=== PATIENT | male | born 2000 | race Caucasian/White ===

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

== ENCOUNTER → 2019-01-20 | Outpatient (CLI) | payer OTHER ==
--- NOTE | 2019-01-20 13:42 | MR ---
EXAMINATION TYPE: MR hip RT wo con DATE OF EXAM: 01/20/2019 8:41 AM COMPARISON: NONE HISTORY: Pain in right hip / trochanteric bursitis TECHNIQUE: Multiplanar, multiecho imaging of the right hip is performed without IV contrast. FINDINGS: The hip joint is well-maintained. There is no significant effusion. There is no evidence of avascular necrosis. Right intertrochanteric bursa is normal. Structures within the pelvis appear normal. There is a scant amount of free fluid within the pelvis. IMPRESSION: 1. NORMAL MRI OF THE RIGHT HIP. 2. NO EVIDENCE OF TROCHANTERIC BURSITIS. 3. SCANT AMOUNT OF FREE FLUID WITHIN THE PELVIS.
== END | disposition home or self-care (01) ==
LOC: RADMRIMAIN 07:48
PROVIDERS: ATTEND Orthopaedic Surgery
DX: M25.551 Pain in right hip (principal); M70.61 Trochanteric bursitis, right hip

== ENCOUNTER → 2019-07-23 | Outpatient (CLI) | payer OTHER ==
--- NOTE | 2019-07-23 11:57 | XR ---
EXAMINATION TYPE: XR chest 2V DATE OF EXAM: 07/23/2019 COMPARISON: 07/19/2017 TECHNIQUE: PA and lateral views submitted. HISTORY: Cough FINDINGS: The lungs are clear and there is no pneumothorax, pleural effusion, or focal pneumonia. No overt fa ilure. No pneumothorax. IMPRESSION: 1. No acute process.
== END | disposition home or self-care (01) ==
LOC: RADXRYALE 11:33
PROVIDERS: ATTEND Physician Assistant Medical
DX: R05 Cough (principal)
CPT/HCPCS: 71046

== ENCOUNTER 2021-03-08 01:09 | Emergency (ER) | payer OTHER ==
[2021-03-08 01:22] VITALS: BP 125/78; PULSE 81; RESP 19; TEMP 98.1
[2021-03-08] MEDS ORDERED: Acetaminophen-Codeine 300-30mg TAB PO STA (01:45)
[2021-03-08] MEDS ORDERED: SULFAMETHOX-TMP 800-160MG 1 EACH TAB PO STA (01:45)
[2021-03-08] MEDS ORDERED: LIDOCAINE 1% INJ 10MG/ML (20 ML MDV) SQ ONE (01:46)
--- NOTE | 2021-03-08 02:24 | ED ---
Skin/Abscess/FB HPI - General Chief complaint: Skin/Abscess/Foreign Body Stated complaint: Tailbone Pain Time Seen by Provider: 03/08/21 01:30 Source: patient Mode of arrival: ambulatory - History of Present Illness complaint: abscess/boil Onset/Timin -: days(s) Tetanus Up to Date: yes Location: buttocks Severity: moderate Quality: aching Consistency: constant Improves with: none Worsens with: none - Related Data Home Medications Medication Instructions Recorded Confirmed No Known Home Medications 05/17/14 05/17/14 Allergies Allergy/AdvReac Type Severity Reaction Status Date / Time Penicillins Allergy Intermediate Rash/Hives Verified 03/08/21 01:22 Review of Systems ROS Statement: Those systems with pertinent positive or pertinent negative responses have been documented in the HPI. ROS Other: All systems not noted in ROS Statement are negative. Constitutional: Denies: fever, chills Respiratory: Denies: cough, dyspnea Cardiovascular: Denies: chest pain, palpitations Gastrointestinal: Denies: abdominal pain, nausea, vomiting Musculoskeletal: Denies: back pain Skin: Reports: as per HPI Hematological/Lymphatic: Denies: easy bleeding Past Medical History Past Medical History: No Reported History History of Any Multi-Drug Resistant Organisms: None Reported Past Surgical History: No Surgical Hx Reported Past Psychological History: No Psychological Hx Reported Smoking Status: Never smoker Past Alcohol Use History: None Reported Past Drug Use History: None Reported General Exam General appearance: alert, in no apparent distress Head exam: Present: atraumatic, normocephalic Eye exam: Present: normal appearance. Absent: scleral icterus, conjunctival injection Respiratory exam: Present: normal lung sounds bilaterally. Absent: respiratory distress, wheezes, rales, rhonchi, stridor Cardiovascular Exam: Present: regular rate, normal rhythm, normal heart sounds. Absent: systolic murmur, diastolic murmur, rubs, gallop GI/Abdominal exam: Present: soft. Absent: distended, tenderness, guarding, rebound, rigid, mass Extremities exam: Present: normal inspection, normal capillary refill Neurological exam: Present: alert Skin exam: Present: warm, dry, intact, erythema, other (There is an approximately 5 cm diameter area of warmth, erythema, overlying fluctuant what appears to be abscess/pilonidal cyst) Course Vital Signs 03/08/21 01:17 Temperature 98.1 F Pulse Rate 81 Respiratory 19 Rate Blood Pressure 125/78 O2 Sat by Pulse 98 Oximetry Procedures - Incision & Drainage Consent Obtained: verbal consent Site: buttock Size (cm): 5 Anesthetic Used: lidocaine 1% Amount (mLs): 2 I&D Cleaning Method: Betadine Sterile Field Used?: Yes Scalpel Used: #11 Irrigation Performed?: Yes I&D Drainage Obtained: Pus Packing: Iodoform Patient Tolerated Procedure: well, no complications Disposition Clinical Impression: Pilonidal cyst with abscess Disposition: HOME SELF-CARE Condition: Good Instructions (If sedation given, give patient instructions): Pilonidal Cyst (ED), Abscess Incision and Drainage (DC) Is patient prescribed a controlled substance at d/c from ED?: No Referrals: Sumanth Arreguin DO [Primary Care Provider] - 1-2 days Linsey Russo DO [Doctor of Osteopathic Medicine] - 1-2 days
== END 2021-03-08 02:40 | disposition home or self-care (01) ==
LOC: EC 01:09
DX: L05.01 Pilonidal cyst with abscess (principal); Z88.0 Allergy status to penicillin
CPT/HCPCS: 99282; 10080; J2001

== ENCOUNTER 2021-10-07 11:05 | Day surgery (SDC) | payer OTHER ==
[2021-10-05 10:05] VITALS: BMI 22.9
[~2021-10-07 11:05] MED LIST: LACTATED RINGERS 1,000 ML IV SCH
[2021-10-07 11:43] VITALS: TEMP 97.8
[2021-10-07] MEDS ORDERED: LIDOCAINE 1% INJ 10MG/ML (20 ML MDV) ONE (12:42)
[2021-10-07] MEDS ORDERED: PROPOFOL 10 MG/ML 20 ML VIAL IV ONE (12:42)
[2021-10-07] MEDS ORDERED: KETAMINE 10 MG/ML 20 ML VIAL ONE (12:42)
[2021-10-07] MEDS ORDERED: MIDAZOLAM 2 MG/2 ML VIAL ONE (12:42)
--- NOTE | 2021-10-07 12:51 | P.PCN ---
Date of Procedure: 10/07/21 Procedure(s) Performed: BRIEF HISTORY: Patient is a 21-year-old, pleasant, white male scheduled for an upper endoscopy as a part of evaluation of long-standing history of GERD for the last 2 years duration. He was on omeprazole in the past recently has been on diet modification and taking Prilosec as needed.. PROCEDURE PERFORMED: Esophagogastroduodenoscopy. PREOPERATIVE DIAGNOSIS: Long-standing history of GERD. IV sedation per anesthesia. PROCEDURE: After informed consent was obtained, the patient was brought into the endoscopy unit. IV sedation was administered by Anesthesia under continuous monitoring. Initially the Olympus GIF-140 video endoscope was inserted into the mouth. Esophagus intubated without any difficulty. It was gradually advanced into the stomach and duodenum and carefully examined. The bulb and the second part of the duodenum appeared normal. The scope at this time was withdrawn to the stomach, adequately insufflated with air, and upon careful examination, mucosa of the antrum, body, cardia and the fundus appeared normal. The scope was then withdrawn into the esophagus. The GE junction was located at 39 cm from the incisors. It appeared regular with no erythema. A very small sliding type hiatal hernia noted. The esophagus appeared normal. There were no erosions or ulcerations seen and the patient tolerated the procedure well. IMPRESSION: 1. Small sliding type hiatal hernia. 2. No evidence of esophagitis or Bailey's esophagus. RECOMMENDATIONS: The findings of this examination were discussed with the patient as well as his family. He was advised to continue with diet modification and follow antireflux measures. Use [id number] Prilosec as needed based on his symptoms.
[2021-10-07 13:08] VITALS: BP 131/70; PULSE 55; RESP 16
== END 2021-10-07 13:37 | disposition home or self-care (01) ==
LOC: ORWHC2ENDO 11:05
PROVIDERS: ATTEND Internal Medicine Gastroenterology
DX: K21.9 Gastro-esophageal reflux disease without esophagitis (principal); K44.9 Diaphragmatic hernia without obstruction or gangrene; Z83.79 Family history of other diseases of the digestive system; F17.210 Nicotine dependence, cigarettes, uncomplicated; Z88.1 Allergy status to other antibiotic agents; Z88.0 Allergy status to penicillin
CPT/HCPCS: 43235; J2250; J2001; J2704

== ENCOUNTER → 2022-01-21 | Outpatient (CLI) | payer OTHER ==
--- NOTE | 2022-01-21 16:14 | XR ---
Right shoulder HISTORY: Strain injury 3 days prior, pain 3 views of the right shoulder There is superior displacement of the distal: Relation to the acromion consistent with acromioclavicu lar separation. No fracture evident. The humeral joint is intact. Right lung as visualized is normal. IMPRESSION: Grade 2 to grade 3 acromioclavicular joint separation is suspected
== END | disposition home or self-care (01) ==
LOC: RADXRYALE 15:09
PROVIDERS: ATTEND Physician Assistant
DX: M19.011 Primary osteoarthritis, right shoulder (principal)

== ENCOUNTER → 2024-12-24 | Outpatient (CLI) | payer BC ==
--- NOTE | 2024-12-24 12:05 | XR ---
EXAMINATION TYPE: XR foot complete RT DATE OF EXAM: 12/24/2024 11:48 AM INDICATION: Patient age:Male; 24 years old; Reason for study: [id number] RT FOOT PAIN; [facility]. pain COMPARISON: None TECHNIQUE: The right foot was examined in the AP, oblique, and lateral projections. FINDINGS: No evidence of any acute osseous pathology. No evidence of soft tissue swelling. Joints are preserve d. Incidental note is made of symphalangism of the fifth distal interphalangeal joint. No radiopaque foreign body. IMPRESSION: No evidence of acute fracture. [facility], , 12/24/2024 12:03 PM
== END | disposition home or self-care (01) ==
LOC: RADXRYALE 11:13
PROVIDERS: ATTEND Physician Assistant Medical
DX: M79.671 Pain in right foot (principal)